=== PATIENT | female | born 1980 | race African-American/Black ===

== ENCOUNTER 2017-02-19 01:05 | Emergency (ER) | payer OTHER ==
[~2017-02-19] VITALS: Ht 167.6 cm; Wt 54.0 kg
[~2017-02-19 01:05] MED LIST: ALPR0.5T96 PO; AMLO10TA80 PO; DILT240C92 PO; HYDR25TA PO; LEVE500T19 PO; MONT10TA24 PO
[2017-02-19] MEDS ORDERED: TRAMADOL 50MG TABLET PO ONE (04:00)
[2017-02-19] MEDS ORDERED: KETOROLAC 60MG/2ML VIAL IM ONE (04:00)
[2017-02-19 04:10] LABS: CLARITY URINE CLOUDY (CLEAR); COLOR URINE YELLOW (YELLOW); GLUCOSE URINE NEGATIVE (NEGATIVE); KETONES URINE NEGATIVE (NEGATIVE); LEUKOCYTE ESTERASE URINE TRACE (NEGATIVE); NITRITE URINE POSITIVE (NEGATIVE); OCCULT BLOOD URINE 3+ (NEGATIVE); PROTEIN URINE NEGATIVE (NEGATIVE); SPECIFIC GRAVITY URINE 1.019 (1.005-1.030)
[2017-02-19 04:24] LABS: BASOPHILS % 1.2 % (0.0-2.0); EOSINOPHILS % 1.3 % (0.0-5.0); HEMATOCRIT. 25.9 % (36.0-48.0); HEMOGLOBIN. 8.2 g/dL (12.0-16.0); MEAN CORPUSCULAR HEMOGLOBIN 20.9 pg (28.0-32.0); MEAN CORPUSCULAR VOLUME 66.2 fL (81.0-99.0); MEAN PLATELET VOLUME 7.3 fl (7.4-10.4); MONOCYTES % 10.4 % (2.0-8.0); NEUTROPHILS % 58.1 % (40.0-76.0); PLATELET 418 x1000/uL (130-400); RED BLOOD CELL COUNT 3.91 mill/uL (4.2-5.4); RED CELL DISTRIBUTION WIDTH 23.9 % (11.6-14.6)
[2017-02-19 05:45] VITALS: BP 133/84
== END 2017-02-19 06:08 | disposition home or self-care (01) ==
LOC: ER 01:05
DX: N30.90 Cystitis, unspecified without hematuria (principal); G89.11 Acute pain due to trauma; R68.84 Jaw pain; Y04.8XXA Assault by other bodily force, initial encounter; Y93.89 Activity, other specified; Y07.50 Unspecified non-family member, perpetrator of maltreatment and neglect; Y92.098 Other place in other non-institutional residence as the place of occurrence of the external cause; Z98.890 Other specified postprocedural states; Z72.0 Tobacco use; Z88.8 Allergy status to other drugs, medicaments and biological substances; Z91.018 Allergy to other foods
CPT/HCPCS: 36415; 81001; 81025; 85025; 96372; 99284; J1885; Z7610

== ENCOUNTER 2017-12-24 00:19 | Emergency (ER) | payer MEDICAID, OTHER ==
[~2017-12-24] VITALS: Ht 167.6 cm; Wt 62.0 kg
[~2017-12-24 00:19] MED LIST changes: +ALPR0.5T PO; -ALPR0.5T96 PO; +CLON0.2T PO; -HYDR25TA PO
[2017-12-24 03:15] VITALS: BP 120/74
== END 2017-12-24 03:16 | disposition home or self-care (01) ==
LOC: ER 00:19
DX: I88.9 Nonspecific lymphadenitis, unspecified (principal); I10 Essential (primary) hypertension; Z91.018 Allergy to other foods; F17.200 Nicotine dependence, unspecified, uncomplicated; F12.10 Cannabis abuse, uncomplicated
CPT/HCPCS: 93005; 99283; Z7610

== ENCOUNTER 2018-08-04 17:23 | Inpatient (IN) | payer MEDICAID, OTHER ==
[~2018-08-04] VITALS: Ht 167.6 cm; Wt 54.4 kg
[2018-08-04] MEDS ORDERED: SODIUM CHLORIDE 0.9% 1,000 ML IV ONE (18:52)
[2018-08-04] MEDS ORDERED: HYDROCODONE/ACETAMINOPHEN 5/325MG TABLET PO STA (18:52)
[2018-08-04 19:37] LABS: BASOPHILS % 1.1 % (0.0-2.0); EOSINOPHILS % 1.4 % (0.0-5.0); HEMATOCRIT. 39.7 % (36.0-48.0); HEMOGLOBIN. 13.1 g/dL (12.0-16.0); LYMPHOCYTES % 39.8 % (20.0-50.0); MEAN CORPUSCULAR HEMOGLOBIN 30.9 pg (28.0-32.0); MEAN CORPUSCULAR VOLUME 93.3 fL (81.0-99.0); MEAN PLATELET VOLUME 8.2 fl (7.4-10.4); MONOCYTES % 7.3 % (2.0-8.0); NEUTROPHILS % 50.4 % (40.0-76.0); PLATELET 395 x1000/uL (130-400); RED BLOOD CELL COUNT 4.26 mill/uL (4.2-5.4); RED CELL DISTRIBUTION WIDTH 16.6 % (11.6-14.6)
[2018-08-04 19:43] LABS: CHLORIDE 106 mEq/L (98-107)
[2018-08-04 19:46] LABS: PROTHROMBIN TIME 10.1 sec (9.1-11.1)
[2018-08-04 21:10] LABS: *AMPHETAMINES SCREEN URINE NEGATIVE (NEGATIVE); *BARBITURATES SCREEN URINE NEGATIVE (NEGATIVE); *BENZODIAZEPINES SCREEN URINE NEGATIVE (NEGATIVE); *COCAINE SCREEN URINE NEGATIVE (NEGATIVE)
[2018-08-04 21:11] LABS: METHADONE URINE SCREEN NEGATIVE (NEGATIVE); PHENCYCLIDINE URINE SCREEN NEGATIVE (NEGATIVE)
[2018-08-04 21:17] LABS: CANNABINOID URINE SCREEN PRESUMTIVE POSITIVE (NEGATIVE); OPIATES URINE SCREEN PRESUMTIVE POSITIVE (NEGATIVE)
[2018-08-04] MEDS ORDERED: IOHEXOL-350 100 ML BOTTLE ONE (21:48)
[2018-08-04] MEDS ORDERED: MORPHINE SULFATE 4 MG/ML CPJ (NOT FOR IM USE) IV ONE (22:45)
[2018-08-04] MEDS ORDERED: LEVETIRACETAM 250MG TABLET PO ONE (22:45)
[2018-08-04] MEDS ORDERED: LEVETIRACETAM 500MG TABLET PO ONE ×2 (22:45→23:15)
[2018-08-04] MEDS ORDERED: HYDRALAZINE 20MG/ML VIAL IV ONE (23:15)
[2018-08-05] MEDS ORDERED: SODIUM CHLORIDE 0.9% 1,000 ML IV SCH (02:27)
[2018-08-05] MEDS ORDERED: MAGNESIUM/ALUMINUM HYDROXIDE/SIMETHICONE 30ML UDC PO PRN (08:30)
[2018-08-05] MEDS ORDERED: ONDANSETRON HCL 4MG/2ML INJ IV PRN (08:30)
[2018-08-05] MEDS ORDERED: MORPHINE SULFATE 4 MG/ML CPJ (NOT FOR IM USE) IV PRN (08:30)
[2018-08-05] MEDS ORDERED: DIPHENHYDRAMINE 50MG/ML VIAL IV PRN (08:30)
[2018-08-05] MEDS ORDERED: IPRATROPIUM/ALBUTEROL 0.5-3(2.5)MG/3ML NEB INH PRN (08:30)
[2018-08-05 09:30] VITALS: BP 133/94
[2018-08-05] MEDS ORDERED: HYDRALAZINE 20MG/ML VIAL IV PRN (10:15)
[2018-08-05] MEDS ORDERED: CLONIDINE 0.2MG TABLET PO PRN (10:30)
[2018-08-05] MEDS ORDERED: BUDE6.9H INH (11:16)
[2018-08-05] MEDS ORDERED: ALBU90AE INH (11:16)
[2018-08-05] MEDS ORDERED: FLUT1DIS3 IH (11:16)
[2018-08-05] MEDS ORDERED: DILTIAZEM HCL 120MG TABLET PO SCH (11:30)
[2018-08-05] MEDS ORDERED: POTASSIUM CHLORIDE 20MEQ TABLET SR PO NR (11:45)
[2018-08-05 12:00] VITALS: BP 153/104
[2018-08-05] MEDS ORDERED: HYDRALAZINE 20MG/ML VIAL IV SCH (12:00)
[2018-08-05] MEDS: LEVETIRACETAM 500MG TABLET PO SCH ×2 (12:18→21:20)
[2018-08-05] MEDS: MONTELUKAST SODIUM 10MG TABLET PO SCH (12:18)
[2018-08-05] MEDS: ENOXAPARIN 40MG/0.4ML SYR SUBCUT SCH (12:18)
[2018-08-05] MEDS: AMLODIPINE 10MG TABLET PO SCH (12:19)
[2018-08-05] MEDS: ALPRAZOLAM 0.5 MG TABLET PO SCH ×3 (12:19→22:27)
[2018-08-05] MEDS: DILTIAZEM HCL 120MG CAPSULE CD 24HR PO SCH (13:58)
[2018-08-05] MEDS ORDERED: LORAZEPAM 2MG/ML CPJ IV PRN (14:45)
[2018-08-05] MEDS ORDERED: IPRATROPIUM/ALBUTEROL 0.5-3(2.5)MG/3ML NEB HHN PRN (15:45)
[2018-08-05 16:00] VITALS: BP 153/97
[2018-08-05 20:00] VITALS: BP 117/83
[2018-08-05] MEDS: IPRATROPIUM/ALBUTEROL 0.5-3(2.5)MG/3ML NEB HHN SCH (20:02)
[2018-08-05] MEDS: FAMOTIDINE 20MG/2ML VIAL IV SCH (21:16)
[2018-08-05] MEDS: LAMOTRIGINE 25MG TABLET PO SCH (21:17)
[2018-08-05] MEDS: LORATADINE 10MG TABLET PO SCH (21:17)
[2018-08-05 22:18] LABS: CLARITY URINE CLOUDY (CLEAR); COLOR URINE ORANGE (YELLOW); KETONES URINE NEGATIVE (NEGATIVE); LEUKOCYTE ESTERASE URINE 1+ (NEGATIVE); NITRITE URINE POSITIVE (NEGATIVE); OCCULT BLOOD URINE 3+ (NEGATIVE); PROTEIN URINE 1+ (NEGATIVE); SPECIFIC GRAVITY URINE 1.014 (1.005-1.030)
[2018-08-05 22:20] LABS: UCG SCREEN NEGATIVE
[2018-08-06] VITALS: BP 129/88
[2018-08-06] MEDS: IPRATROPIUM/ALBUTEROL 0.5-3(2.5)MG/3ML NEB HHN SCH ×4 (02:00→21:46)
[2018-08-06 04:00] VITALS: BP 125/91
[2018-08-06] MEDS: ALPRAZOLAM 0.5 MG TABLET PO SCH ×4 (04:14→21:49)
[2018-08-06 07:19] LABS: CHLORIDE 110 mEq/L (98-107)
[2018-08-06 07:22] LABS: BASOPHILS % 0.5 % (0.0-2.0); EOSINOPHILS % 1.3 % (0.0-5.0); HEMATOCRIT. 32.8 % (36.0-48.0); HEMOGLOBIN. 10.9 g/dL (12.0-16.0); LYMPHOCYTES % 37.5 % (20.0-50.0); MEAN CORPUSCULAR HEMOGLOBIN 31.3 pg (28.0-32.0); MEAN CORPUSCULAR VOLUME 94.2 fL (81.0-99.0); MEAN PLATELET VOLUME 8.5 fl (7.4-10.4); MONOCYTES % 11.7 % (2.0-8.0); PLATELET 263 x1000/uL (130-400); RED BLOOD CELL COUNT 3.48 mill/uL (4.2-5.4); RED CELL DISTRIBUTION WIDTH 16.6 % (11.6-14.6)
[2018-08-06 07:33] LABS: CREATINE KINASE 82 IU/L (26-192)
[2018-08-06 07:36] LABS: CREATINE KINASE MB FRACTION < 1.0 ng/mL (0.5-3.6)
[2018-08-06 08:00] VITALS: BP 158/103
[2018-08-06] MEDS: FAMOTIDINE 20MG/2ML VIAL IV SCH ×2 (10:25→20:52)
[2018-08-06] MEDS: LEVETIRACETAM 500MG TABLET PO SCH ×2 (10:26→20:53)
[2018-08-06] MEDS: DILTIAZEM HCL 120MG CAPSULE CD 24HR PO SCH (10:26)
[2018-08-06] MEDS: AMLODIPINE 10MG TABLET PO SCH (10:26)
[2018-08-06] MEDS: LAMOTRIGINE 25MG TABLET PO SCH (10:26)
[2018-08-06] MEDS: MONTELUKAST SODIUM 10MG TABLET PO SCH (10:27)
[2018-08-06] MEDS: ENOXAPARIN 40MG/0.4ML SYR SUBCUT SCH (10:28)
[2018-08-06 11:39] LABS: BG BASE EXCESS 1.2 mmol/L (-2.0-2.0); BG CARBOXYHEMOGLOBIN 0.5 % (0.5-1.5); BG DEOXYHEMOGLOBIN 1.3 % (0.0-5.0); BG FRACTION INSPIRED OXYGEN 21; BG HCO3 ACT 21.8 mmol/L (22.0-26.0); BG METHEMOGLOBIN 0.3 % (0.0-1.5); BG OXYGEN SATURATION 98.7 % (92.0-98.5); BG OXYHEMOGLOBIN 97.9 % (94.0-97.0); BG PH 7.576 (7.350-7.450); BG PO2 129.8 mmHg (75.0-100.0); BG SAMPLE SITE RIGHT BRACHIAL; BG TOTAL HEMOGLOBIN 12.1 g/dL (12.0-18.0); BG VENT MODE ROOM AIR
[2018-08-06 12:00] VITALS: BP 161/86
[2018-08-06 20:00] VITALS: BP 110/76
[2018-08-06] MEDS: LORATADINE 10MG TABLET PO SCH (20:52)
[2018-08-07] VITALS: BP 109/77
[2018-08-07] MEDS: IPRATROPIUM/ALBUTEROL 0.5-3(2.5)MG/3ML NEB HHN SCH ×3 (02:40→16:38)
[2018-08-07 04:00] VITALS: BP 120/79
[2018-08-07] MEDS: ALPRAZOLAM 0.5 MG TABLET PO SCH ×3 (05:45→16:03)
[2018-08-07 07:32] LABS: CHLORIDE 108 mEq/L (98-107)
[2018-08-07 07:35] LABS: BASOPHILS % 0.6 % (0.0-2.0); EOSINOPHILS % 1.9 % (0.0-5.0); HEMATOCRIT. 31.6 % (36.0-48.0); HEMOGLOBIN. 10.3 g/dL (12.0-16.0); LYMPHOCYTES % 38.2 % (20.0-50.0); MEAN PLATELET VOLUME 8.6 fl (7.4-10.4); MONOCYTES % 13.9 % (2.0-8.0); NEUTROPHILS % 45.4 % (40.0-76.0); PLATELET 262 x1000/uL (130-400); RED BLOOD CELL COUNT 3.33 mill/uL (4.2-5.4); RED CELL DISTRIBUTION WIDTH 16.4 % (11.6-14.6)
[2018-08-07 08:00] VITALS: BP 123/89
[2018-08-07] MEDS: DILTIAZEM HCL 120MG CAPSULE CD 24HR PO SCH ×2 (09:00→10:11)
[2018-08-07] MEDS: ENOXAPARIN 40MG/0.4ML SYR SUBCUT SCH (10:10)
[2018-08-07] MEDS: FAMOTIDINE 20MG/2ML VIAL IV SCH (10:10)
[2018-08-07] MEDS: LAMOTRIGINE 25MG TABLET PO SCH (10:11)
[2018-08-07] MEDS: MONTELUKAST SODIUM 10MG TABLET PO SCH (10:11)
[2018-08-07] MEDS: AMLODIPINE 10MG TABLET PO SCH (10:12)
[2018-08-07] MEDS: LEVETIRACETAM 500MG TABLET PO SCH (10:12)
[2018-08-07 12:00] VITALS: BP 124/82
[2018-08-07] MEDS ORDERED: LAMO25TA3 MT (12:02)
[2018-08-07] MEDS ORDERED: POTASSIUM CHLORIDE 20MEQ TABLET SR PO NR (13:00)
[2018-08-07 16:22] VITALS: BP 123/82
== END 2018-08-07 17:05 | disposition home or self-care (01) | DRG 133 ==
LOC: ER 17:23 → 5WST 23:36 → ENRESERV 08-05 08:00
PROVIDERS: ADMIT Internal Medicine; ATTEND Internal Medicine
DX: J96.00 Acute respiratory failure, unspecified whether with hypoxia or hypercapnia (principal); J84.81 Lymphangioleiomyomatosis; Z99.81 Dependence on supplemental oxygen; J45.901 Unspecified asthma with (acute) exacerbation; D64.9 Anemia, unspecified; F32.9 Major depressive disorder, single episode, unspecified; R07.81 Pleurodynia; R00.0 Tachycardia, unspecified; R26.9 Unspecified abnormalities of gait and mobility; F41.9 Anxiety disorder, unspecified; G40.909 Epilepsy, unspecified, not intractable, without status epilepticus; I10 Essential (primary) hypertension; E87.6 Hypokalemia; F12.90 Cannabis use, unspecified, uncomplicated; F17.210 Nicotine dependence, cigarettes, uncomplicated; Z82.49 Family history of ischemic heart disease and other diseases of the circulatory system; Z85.3 Personal history of malignant neoplasm of breast; Z86.718 Personal history of other venous thrombosis and embolism; Z90.13 Acquired absence of bilateral breasts and nipples; Z92.21 Personal history of antineoplastic chemotherapy; Z88.8 Allergy status to other drugs, medicaments and biological substances; Z91.018 Allergy to other foods; R07.89 Other chest pain
CPT/HCPCS: 36415; 36600; 71045; 71275; 80048; 80305; 81025; 82375; 82550; 82553; 82805; 83735; 83880; 84443; 84484; 85379; 93005; 93306; 93970; 94640; 96361; 96374; 96375; 97116; 97163; 97166; 99285; J0360; J1650; J2270; J3490; J7030; J7620; Q9967

== ENCOUNTER 2018-11-20 01:05 | Emergency (ER) | payer MEDICAID ==
[~2018-11-20] VITALS: Ht 167.6 cm; Wt 59.0 kg
[~2018-11-20 01:05] MED LIST changes: +ALBU90AE INH; +BUDE6.9H INH; +FLUT1DIS3 IH; +LAMO25TA3 MT
[2018-11-20 02:12] LABS: BASOPHILS % 1.1 % (0.0-2.0); EOSINOPHILS % 0.8 % (0.0-5.0); HEMATOCRIT. 32.9 % (36.0-48.0); HEMOGLOBIN. 10.8 g/dL (12.0-16.0); LYMPHOCYTES % 30.5 % (20.0-50.0); MEAN CORPUSCULAR VOLUME 82.1 fL (81.0-99.0); MEAN PLATELET VOLUME 7.2 fl (7.4-10.4); MONOCYTES % 6.9 % (2.0-8.0); NEUTROPHILS % 60.7 % (40.0-76.0); PLATELET 410 x1000/uL (130-400); RED CELL DISTRIBUTION WIDTH 21.6 % (11.6-14.6)
[2018-11-20 02:19] LABS: CHLORIDE 103 mEq/L (98-107)
[2018-11-20 06:20] VITALS: BP 141/70
== END 2018-11-20 06:20 | disposition home or self-care (01) ==
LOC: ER 01:05
DX: M54.9 Dorsalgia, unspecified (principal); R06.02 Shortness of breath; J45.909 Unspecified asthma, uncomplicated; I10 Essential (primary) hypertension; Z87.891 Personal history of nicotine dependence
CPT/HCPCS: 36415; 71045; 80053; 83605; 83880; 84484; 85025; 87040; 93005; 99284; Z7610

== ENCOUNTER 2019-03-22 13:23 | Emergency (ER) | payer MEDICARE, OTHER ==
[~2019-03-22] VITALS: Ht 167.6 cm; Wt 60.0 kg
[2019-03-22] MEDS ORDERED: SODIUM CHLORIDE 0.9% IV ONE (14:06)
[2019-03-22] MEDS ORDERED: ONDANSETRON HCL 4MG/2ML INJ IV NR (14:06)
[2019-03-22] MEDS ORDERED: LEVETIRACETAM 1000MG/100ML 100 ML IV NR (14:06)
[2019-03-22] MEDS ORDERED: LEVETIRACETAM 1000MG/100ML 100 ML IV ONE (14:41)
[2019-03-22] MEDS ORDERED: ONDANSETRON HCL 4MG/2ML INJ ONE (14:41)
[2019-03-22 14:52] LABS: BASOPHILS % 1.2 % (0.0-2.0); EOSINOPHILS % 0.5 % (0.0-5.0); HEMATOCRIT. 30.1 % (36.0-48.0); HEMOGLOBIN. 9.6 g/dL (12.0-16.0); LYMPHOCYTES % 24.8 % (20.0-50.0); MEAN CORPUSCULAR HEMOGLOBIN 24.5 pg (28.0-32.0); MEAN PLATELET VOLUME 7.6 fl (7.4-10.4); MONOCYTES % 6.5 % (2.0-8.0); PLATELET 462 x1000/uL (130-400); RED BLOOD CELL COUNT 3.91 mill/uL (4.2-5.4); RED CELL DISTRIBUTION WIDTH 20.2 % (11.6-14.6)
[2019-03-22 15:02] LABS: CHLORIDE 107 mEq/L (98-107)
[2019-03-22 15:03] LABS: HCG SCREEN NEGATIVE
[2019-03-22 15:06] LABS: ETHANOL BLOOD < 10 mg/dL
[2019-03-22 15:13] LABS: CARBAMAZEPINE < 0.5 ug/mL (4-12); PHENOBARBITAL < 2.1 ug/mL (15.0-40.0); VALPROIC ACID < 3.0 ug/mL (50-100)
[2019-03-22] MEDS ORDERED: CLONIDINE 0.1MG TABLET PO ONE (17:50)
[2019-03-22] MEDS ORDERED: CLONIDINE 0.1MG TABLET ONE (18:29)
[2019-03-22 19:16] VITALS: BP 146/105
== END 2019-03-22 19:21 | disposition home or self-care (01) ==
LOC: ER 14:00
DX: R56.9 Unspecified convulsions (principal); R53.1 Weakness; J45.909 Unspecified asthma, uncomplicated; I10 Essential (primary) hypertension; Z98.890 Other specified postprocedural states; Z90.89 Acquired absence of other organs; Z79.899 Other long term (current) drug therapy; Z88.1 Allergy status to other antibiotic agents; Z91.018 Allergy to other foods; Z88.8 Allergy status to other drugs, medicaments and biological substances
CPT/HCPCS: 36415; 80053; 80156; 80165; 80184; 80185; 80307; 80320; 80329; 81025; 82962; 84443; 84703; 85025; 93005; 99284; J1953; J2405; G0480

== ENCOUNTER 2019-05-08 02:28 | Emergency (ER) | payer MEDICARE ==
[~2019-05-08] VITALS: Ht 167.6 cm; Wt 57.0 kg
[2019-05-08 03:50] LABS: BASOPHILS % 0.8 % (0.0-2.0); EOSINOPHILS % 2.2 % (0.0-5.0); HEMATOCRIT. 24.7 % (36.0-48.0); LYMPHOCYTES % 26.9 % (20.0-50.0); MEAN CORPUSCULAR HEMOGLOBIN 22.1 pg (28.0-32.0); MEAN CORPUSCULAR VOLUME 68.5 fL (81.0-99.0); MEAN PLATELET VOLUME 6.7 fl (7.4-10.4); MONOCYTES % 8.2 % (2.0-8.0); NEUTROPHILS % 61.9 % (40.0-76.0); PLATELET 453 x1000/uL (130-400); RED BLOOD CELL COUNT 3.61 mill/uL (4.2-5.4); RED CELL DISTRIBUTION WIDTH 19.6 % (11.6-14.6)
[2019-05-08 03:57] LABS: CHLORIDE 110 mEq/L (98-107)
[2019-05-08 04:08] LABS: PLATELET ESTIMATE INCREASED
[2019-05-08 05:06] VITALS: BP 135/94
[2019-05-08] MEDS ORDERED: POTASSIUM CHLORIDE 20MEQ TABLET SR PO SCH (05:15)
== END 2019-05-08 05:30 | disposition home or self-care (01) ==
LOC: ER 02:28
DX: D64.9 Anemia, unspecified (principal); R51 Headache; R07.89 Other chest pain; J45.909 Unspecified asthma, uncomplicated; I10 Essential (primary) hypertension; G40.909 Epilepsy, unspecified, not intractable, without status epilepticus; Z98.890 Other specified postprocedural states; F17.200 Nicotine dependence, unspecified, uncomplicated; Z79.899 Other long term (current) drug therapy; Z91.018 Allergy to other foods; Z88.8 Allergy status to other drugs, medicaments and biological substances; Z88.1 Allergy status to other antibiotic agents
CPT/HCPCS: 36415; 71045; 80053; 81025; 83880; 84484; 85025; 93005; 99284; Z7610

== ENCOUNTER 2019-05-09 17:40 | Emergency (ER) | payer MEDICARE ==
[~2019-05-09] VITALS: Ht 167.6 cm; Wt 57.0 kg
[2019-05-09 19:19] LABS: BASOPHILS % 0.6 % (0.0-2.0); HEMATOCRIT. 24.3 % (36.0-48.0); HEMOGLOBIN. 7.6 g/dL (12.0-16.0); LYMPHOCYTES % 25.5 % (20.0-50.0); MEAN CORPUSCULAR HEMOGLOBIN 21.6 pg (28.0-32.0); MEAN CORPUSCULAR VOLUME 68.7 fL (81.0-99.0); MONOCYTES % 9.2 % (2.0-8.0); NEUTROPHILS % 63.7 % (40.0-76.0); PLATELET 401 x1000/uL (130-400); RED BLOOD CELL COUNT 3.53 mill/uL (4.2-5.4); RED CELL DISTRIBUTION WIDTH 19.2 % (11.6-14.6)
[2019-05-09 19:27] LABS: CHLORIDE 108 mEq/L (98-107)
[2019-05-09 19:33] LABS: PLATELET ESTIMATE SLIGHTLY INCREASED
[2019-05-09 20:10] VITALS: BP 129/92
[2019-05-09] MEDS ORDERED: IBUPROFEN 400MG TABLET PO ONE (21:15)
== END 2019-05-09 23:48 | disposition home or self-care (01) ==
LOC: ER 17:40
DX: G40.909 Epilepsy, unspecified, not intractable, without status epilepticus (principal); S00.83XA Contusion of other part of head, initial encounter; I10 Essential (primary) hypertension; F17.210 Nicotine dependence, cigarettes, uncomplicated; Z91.14 Patient's other noncompliance with medication regimen; Z98.890 Other specified postprocedural states; Z90.89 Acquired absence of other organs; Z88.8 Allergy status to other drugs, medicaments and biological substances; Z91.018 Allergy to other foods; Z71.6 Tobacco abuse counseling; W01.0XXA Fall on same level from slipping, tripping and stumbling without subsequent striking against object, initial encounter; Y93.89 Activity, other specified; Y92.018 Other place in single-family (private) house as the place of occurrence of the external cause
CPT/HCPCS: 36415; 80048; 99283; 99406

== ENCOUNTER 2021-06-29 19:53 | Emergency (ER) | payer MEDICARE ==
[~2021-06-29] VITALS: Ht 167.6 cm; Wt 59.0 kg
[~2021-06-29 19:53] MED LIST changes: -AMLO10TA80 PO; -BUDE6.9H INH; -CLON0.2T PO; +FOLI-43 PO; +HYDR-4001 MT; +KEPP500 PO; -LAMO25TA3 MT; -LEVE500T19 PO; +LISI10TA26 PO; -MONT10TA24 PO; +MONT10TA32 PO; +THIA100T72 PO
[2021-06-29] MEDS ORDERED: LEVETIRACETAM 500MG TABLET PO ONE (20:30)
[2021-06-29] MEDS ORDERED: ACETAMINOPHEN 325MG TABLET PO ONE (20:30)
[2021-06-29 20:52] LABS: BASOPHILS % 0.4 % (0.0-2.0); EOSINOPHILS % 0.3 % (0.0-5.0); HEMATOCRIT. 25.3 % (36.0-48.0); HEMOGLOBIN. 7.7 g/dL (12.0-16.0); MEAN CORPUSCULAR HEMOGLOBIN 20.9 pg (28.0-32.0); MEAN CORPUSCULAR VOLUME 68.5 fL (81.0-99.0); MEAN PLATELET VOLUME 7.2 fl (7.4-10.4); MONOCYTES % 7.6 % (2.0-8.0); NEUTROPHILS % 76.7 % (40.0-76.0); PLATELET 525 x1000/uL (130-400); RED BLOOD CELL COUNT 3.69 mill/uL (4.2-5.4); RED CELL DISTRIBUTION WIDTH 22.1 % (11.6-14.6)
[2021-06-29 20:56] LABS: CHLORIDE 110 mEq/L (98-107)
[2021-06-29 20:59] LABS: HCG SCREEN NEGATIVE
[2021-06-29 21:07] LABS: PLATELET ESTIMATE INCREASED
[2021-06-29 21:08] LABS: B-HCG QUANTITATIVE < 1 mIU/mL (<3)
[2021-06-29] MEDS ORDERED: POTASSIUM BICARB/CIT ACID 25 MEQ TABLET.EFF PO ONE (21:15)
[2021-06-29] MEDS ORDERED: POTASSIUM CHLORIDE 20MEQ TABLET SR PO ONE (21:15)
[2021-06-29 23:00] VITALS: BP 145/74
[2021-06-29] MEDS ORDERED: KETOROLAC 30MG/ML VIAL IV ONE (23:00)
[2021-06-29 23:11] LABS: CLARITY URINE CLEAR (CLEAR); COLOR URINE YELLOW (YELLOW); KETONES URINE NEGATIVE (NEGATIVE); LEUKOCYTE ESTERASE URINE 3+ (NEGATIVE); NITRITE URINE NEGATIVE (NEGATIVE); OCCULT BLOOD URINE 1+ (NEGATIVE); PH URINE 5.5 (4.5-8.0); PROTEIN URINE 1+ (NEGATIVE); SPECIFIC GRAVITY URINE 1.007 (1.005-1.030); UROBILINOGEN URINE 0.2 E.U./dL (0.2-1.0)
[2021-06-29] MEDS ORDERED: CEFTRIAXONE 1 G PREMIX 50 ML IV ONE (23:30)
[2021-06-30] MEDS ORDERED: CEPH500C2 MT (01:02)
[2021-06-30] MEDS ORDERED: ACET-2708 MT (01:03)
[2021-06-30] MEDS ORDERED: IBUP-2028 MT (01:03)
== END 2021-06-30 03:16 | disposition home or self-care (01) ==
LOC: ER 19:53
DX: N39.0 Urinary tract infection, site not specified (principal); I10 Essential (primary) hypertension; Z88.1 Allergy status to other antibiotic agents; Z88.8 Allergy status to other drugs, medicaments and biological substances; Z98.890 Other specified postprocedural states; Z91.018 Allergy to other foods; Z79.899 Other long term (current) drug therapy; Z86.59 Personal history of other mental and behavioral disorders
CPT/HCPCS: 36415; 71045; 76705; 76830; 76856; 80053; 81003; 82248; 83690; 84702; 84703; 85025; 86850; 86900; 86901; 87086; 93005; 96365; 96375; 99285; J0696; J1885